=== PATIENT | female | born 1960 | race Caucasian/White ===

== ENCOUNTER → 2021-09-19 | Outpatient (CLI) | payer BC | LOC: KOH-I 14:34 | DX: M79.672 Pain in left foot (principal); M79.671 Pain in right foot; M25.552 Pain in left hip; M25.551 Pain in right hip; M19.071 Primary osteoarthritis, right ankle and foot; M19.072 Primary osteoarthritis, left ankle and foot | CPT/HCPCS: 73630; 73650 ==